=== PATIENT | female | born 1970 ===

== ENCOUNTER 2017-03-03 15:48 | Emergency (ER) | payer BC ==
[2017-03-03 16:08] VITALS: BP 149/84; PULSE 105; RESP 20; TEMP 98.9
--- NOTE | 2017-03-03 16:29 | ED ---
Neck Injury/Pain HPI - General Chief Complaint: Neck Pain/Injury Stated Complaint: Neck pain Time Seen by Provider: 03/03/17 16:13 Mode of arrival: ambulatory Limitations: no limitations - History of Present Illness MD Complaint: neck pain -: days(s) (2) Radiation: head Severity: moderate Severity scale (1-10): 8 Quality: burning, sharp Consistency: constant Treatments Prior to Arrival: other (valium) - Related Data Previous Rx's Medication Instructions Recorded Cyclobenzaprine [Flexeril] 10 mg PO TID #20 tab 03/03/17 methylPREDNISolone [Medrol] 4 mg PO DIRECTED #1 tab.ds.pk 03/03/17 Allergies Allergy/AdvReac Type Severity Reaction Status Date / Time No Known Allergies Allergy Verified 03/03/17 16:04 Review of Systems ROS Statement: Those systems with pertinent positive or pertinent negative responses have been documented in the HPI. ROS Other: All systems not noted in ROS Statement are negative. Constitutional: Denies: fever, chills Eyes: Denies: vision change ENT: Denies: ear pain, throat pain Respiratory: Denies: cough Cardiovascular: Denies: palpitations Endocrine: Denies: fatigue Gastrointestinal: Denies: abdominal pain, nausea, vomiting Skin: Denies: rash Neurological: Reports: headache. Denies: weakness, numbness, paresthesias, confusion, vertigo Past Medical History History of Any Multi-Drug Resistant Organisms: None Reported Past Surgical History: Hysterectomy, Orthopedic Surgery, Tubal Ligation Additional Past Surgical History / Comment(s): angeli knee replaced, nasal surgery Past Psychological History: No Psychological Hx Reported Smoking Status: Current some day smoker Past Alcohol Use History: None Reported Past Drug Use History: Marijuana General Exam Limitations: no limitations General appearance: alert, in no apparent distress Eye exam: Present: normal appearance, PERRL, EOMI. Absent: scleral icterus, conjunctival injection, periorbital swelling ENT exam: Present: normal exam, mucous membranes moist Neck exam: Present: normal inspection, tenderness (Generally tender to bilateral neck especially in the paraspinal area. Slight muscle spasms are noted.). Absent: meningismus, full ROM (Unable tolerate any range of motion more than 5 in any side.), lymphadenopathy Respiratory exam: Present: normal lung sounds bilaterally. Absent: respiratory distress, wheezes, rales, rhonchi, stridor Cardiovascular Exam: Present: regular rate, normal rhythm, normal heart sounds. Absent: systolic murmur, diastolic murmur, rubs, gallop, clicks Extremities exam: Present: normal inspection, full ROM, normal capillary refill. Absent: tenderness, pedal edema, joint swelling, calf tenderness Back exam: Present: normal inspection, muscle spasm (cervical), paraspinal tenderness Neurological exam: Present: alert, oriented X3, CN II-XII intact Psychiatric exam: Present: normal affect, normal mood Skin exam: Present: warm, dry, intact, normal color. Absent: rash Course Vital Signs 03/03/17 16:04 Temperature 98.9 F Pulse Rate 105 H Respiratory 20 Rate Blood Pressure 149/84 O2 Sat by Pulse 99 Oximetry Medical Decision Making - Medical Decision Making Patient was offered injections of Solu-Medrol and Toradol today. Patient declined for her cervical strain and torticollis. Patient would rather just get oral tablets. She states her Valium is out-of-date and she will throw those away. Disposition Clinical Impression: Strain of neck muscle, Torticollis Disposition: HOME SELF-CARE Condition: Good Instructions: Cervical Strain (ED), Spasmodic Torticollis (ED) Prescriptions: Cyclobenzaprine [Flexeril] 10 mg PO TID #20 tab methylPREDNISolone [Medrol] 4 mg PO DIRECTED #1 tab.ds.pk Referrals: None,Stated [Primary Care Provider] - 1-2 days Santiago Carlisle MD [STAFF PHYSICIAN] - 1-2 days Time of Disposition: 16:28
== END 2017-03-03 16:32 | disposition home or self-care (01) ==
LOC: EC 15:48
DX: S16.1XXA Strain of muscle, fascia and tendon at neck level, initial encounter (principal); M43.6 Torticollis; F17.200 Nicotine dependence, unspecified, uncomplicated; Z53.29 Procedure and treatment not carried out because of patient's decision for other reasons
CPT/HCPCS: 99283

== ENCOUNTER → 2017-10-31 | Outpatient (CLI) | payer BC ==
--- NOTE | 2017-11-01 14:02 | MM ---
Reason for exam: screening (asymptomatic). Last mammogram was performed 3 years and 7 months ago. Physical Findings: A clinical breast exam by your physician is recommended on an annual basis and results should be correlated with mammographic findings. MG Screening Mammo w CAD Bilateral CC and MLO view(s) were taken. Prior study comparison: April 02, 2014, bilateral MG screening mammo w CAD. February 26, 2013, bilateral digital screening mammo w/CAD. The breast tissue is heterogeneously dense. This may lower the sensitivity of mammography. There is chronic nodularity bilaterally. There is no discrete abnormality. ASSESSMENT: Negative, BI-RAD 1 RECOMMENDATION: Routine screening mammogram of both breasts in 1 year.
== END | disposition home or self-care (01) ==
LOC: RADMAMWWP 07:09
PROVIDERS: ATTEND Obstetrics & Gynecology
DX: Z12.31 Encounter for screening mammogram for malignant neoplasm of breast (principal)
CPT/HCPCS: 77067

== ENCOUNTER 2018-09-25 10:43 | Day surgery (SDC) | payer BC ==
[2018-09-23 11:14] VITALS: BMI 30.4
[~2018-09-25 10:43] MED LIST: LACTATED RINGERS 1,000 ML IV SCH; LIDOCAINE 1% 20 ML VIAL (10MG/ML) FOR IV START INTRADERMA PRN
[2018-09-25 11:07] VITALS: RESP 16; TEMP 98.6
[2018-09-25] MEDS ORDERED: LIDOCAINE 1% INJ 10MG/ML (20 ML MDV) ONE (11:25)
[2018-09-25] MEDS ORDERED: PROPOFOL 10 MG/ML 20 ML VIAL IV ONE (11:25)
--- NOTE | 2018-09-25 11:32 | P.GSHP ---
History of Present Illness H&P Date: 09/25/18 Chief Complaint: Internal and external hemorrhoids This is a 48-year-old female who presents today for colonoscopy. Patient had issues with roots. She presents today for she'll screening colonoscopy. Past Medical History Additional Past Medical History / Comment(s): hemorrhoids History of Any Multi-Drug Resistant Organisms: None Reported Past Surgical History: Hysterectomy, Orthopedic Surgery, Tubal Ligation Additional Past Surgical History / Comment(s): angeli knee replaced,toe straightened,hemorrhoidectomy Past Anesthesia/Blood Transfusion Reactions: No Reported Reaction Additional Past Anesthesia/Blood Transfusion Reaction / Comment(s): no hx blood transfusion Past Psychological History: No Psychological Hx Reported Smoking Status: Never smoker Past Alcohol Use History: None Reported Past Drug Use History: Marijuana Additional Drug Use History / Comment(s): quit marijauna 20 yrs ago - Past Family History Father Family Medical History: No Reported History Mother Family Medical History: No Reported History Medications and Allergies Home Medications Medication Instructions Recorded Confirmed Type Acetaminophen/Diphenhydramine 1 each PO HS PRN 09/20/18 09/25/18 History [Tylenol PM Extra Strength] Cetirizine HCl [Zyrtec] 10 mg PO DAILY 09/20/18 09/25/18 History Allergies Allergy/AdvReac Type Severity Reaction Status Date / Time Penicillins Allergy Rash/Hives Verified 09/25/18 10:52 airborne supplement Allergy nasal Uncoded 09/25/18 10:52 congestion Surgical - Exam Vital Signs Temp Pulse Resp BP Pulse Ox 98.6 F 92 16 116/73 96 09/25/18 11:03 09/25/18 11:03 09/25/18 11:03 09/25/18 11:03 09/25/18 11:03 - General well developed, well nourished, no distress - Eyes PERRL - ENT normal pinna - Neck no masses - Respiratory normal expansion - Cardiovascular Rhythm: regular - Abdomen Abdomen: soft, non tender Assessment and Plan Assessment: Hemorrhoids We'll perform screening colonoscopy.
--- NOTE | 2018-09-25 11:46 | P.OP ---
Date of Procedure: 09/25/18 Preoperative Diagnosis: Hemorrhoids Screening colonoscopy Postoperative Diagnosis: Internal and external hemorrhoids Mild diverticular changes Procedure(s) Performed: Colonoscopy Anesthesia: MAC Surgeon: Lauro Culp Pathology: none sent Condition: stable Disposition: PACU Description of Procedure: The patient's placed on the endoscopy table in the lateral position. She received IV sedation. Digital rectal exam was performed which revealed internal/external hemorrhoids. The flexible colonoscope was then placed patient anus passed throughout the entire colon. The ileocecal valve was visualized. The cecum, ascending and transverse colon appeared normal. In the descending; was mild diverticular changes. Scope was then brought back the rectum and this appeared normal. Scope was withdrawn through anus and internal and external hemorrhoids were noted. There is evidence of any GI bleed.
[2018-09-25 12:21] VITALS: BP 121/68; PULSE 72
== END 2018-09-25 12:33 | disposition home or self-care (01) ==
LOC: ORWHC2ENDO 10:43
PROVIDERS: ATTEND Surgery
DX: Z12.11 Encounter for screening for malignant neoplasm of colon (principal); K64.4 Residual hemorrhoidal skin tags; K57.30 Diverticulosis of large intestine without perforation or abscess without bleeding; K64.8 Other hemorrhoids; Z88.0 Allergy status to penicillin; Z79.899 Other long term (current) drug therapy
CPT/HCPCS: J2001; J2704; G0121

== ENCOUNTER 2018-10-09 08:12 | Day surgery (SDC) | payer BC ==
[2018-09-23 11:54] VITALS: BMI 30.4
[~2018-10-09 08:12] MED LIST changes: +DEXAMETHASONE SOD PHOSPHATE 10 MG/ML 1 ML VIAL IV ONE; +HEPARIN SODIUM,PORCINE 5,000 UNIT/ML 1 ML VIAL SQ ONE; +HYDROmorphone 0.5 MG/0.5 ML SYRINGE IVP PRN; +NA PHOS,M-B/NA PHOS,DI-BA 133 ML ENEMA RECTAL ONE; +ONDANSETRON 4 MG/2 ML VIAL IVP ONE; +Pre Op ABX Message 1 EACH MISC MISCELLANE ONE
[2018-10-09 08:40] VITALS: TEMP 99.2
[2018-10-09] MEDS ORDERED: MIDAZOLAM (PF) 2 MG/2 ML VIAL IVP ONE (09:42)
--- NOTE | 2018-10-09 10:00 | P.GSHP ---
History of Present Illness H&P Date: 10/09/18 Chief Complaint: Internal and external hemorrhoids This is a 48-year-old female who's had issues with internal Hemorrhoid. Patient had complaints of rectal pain, itching and bleeding. She presents today for hemorrhoidectomy. Past Medical History Additional Past Medical History / Comment(s): hemorrhoids History of Any Multi-Drug Resistant Organisms: None Reported Past Surgical History: Hysterectomy, Orthopedic Surgery, Tubal Ligation Additional Past Surgical History / Comment(s): angeli knee replaced,toe straightened,hemorrhoidectomy Past Anesthesia/Blood Transfusion Reactions: No Reported Reaction Past Psychological History: No Psychological Hx Reported Smoking Status: Never smoker Past Alcohol Use History: None Reported Past Drug Use History: Marijuana Additional Drug Use History / Comment(s): quit marijauna 20 yrs ago - Past Family History Father Family Medical History: No Reported History Mother Family Medical History: No Reported History Medications and Allergies Home Medications Medication Instructions Recorded Confirmed Type Acetaminophen/Diphenhydramine 1 each PO HS PRN 09/20/18 10/09/18 History [Tylenol PM Extra Strength] Cetirizine HCl [Zyrtec] 10 mg PO DAILY 09/20/18 10/09/18 History Acetaminophen Tab [Tylenol Tab] 1,000 mg PO Q6HR 10/09/18 10/09/18 History Allergies Allergy/AdvReac Type Severity Reaction Status Date / Time Penicillins Allergy Rash/Hives Verified 09/25/18 10:52 airborne supplement Allergy nasal Uncoded 09/25/18 10:52 congestion Surgical - Exam Vital Signs Temp Pulse Resp BP Pulse Ox 99.2 F 89 18 123/69 96 10/09/18 08:37 10/09/18 08:37 10/09/18 08:37 10/09/18 08:37 10/09/18 08:37 - General well developed, well nourished, no distress - Eyes PERRL - ENT normal pinna - Neck no masses - Respiratory normal expansion - Cardiovascular Rhythm: regular - Abdomen Abdomen: soft, non tender - Rectum Internal and external hemorrhoids Assessment and Plan Assessment: Internal and external hemorrhoids. We'll perform hemorrhoidectomy.
[2018-10-09] MEDS ORDERED: KETAMINE 10 MG/ML 20 ML VIAL ONE (10:09)
[2018-10-09] MEDS ORDERED: fentaNYL (PF) 50 MCG/ML 2 ML AMP ONE (10:09)
[2018-10-09] MEDS ORDERED: PROPOFOL 10 MG/ML 20 ML VIAL IV ONE (10:09)
[2018-10-09] MEDS ORDERED: MIDAZOLAM 2 MG/2 ML VIAL ONE (10:09)
[2018-10-09] MEDS ORDERED: LIDOCAINE 1% INJ 10MG/ML (20 ML MDV) ONE (10:09)
[2018-10-09] MEDS ORDERED: BUPIVACAIN-EPI 0.25%-1:200,000 30 ML VIAL SQ ONE (10:10)
[2018-10-09] MEDS ORDERED: GELATIN SPONGE,ABSORB (LARGE) 1 EACH SPONGE TOPICAL ONE (10:29)
[2018-10-09 10:44] VITALS: RESP 16
--- NOTE | 2018-10-09 11:04 | P.OP ---
Date of Procedure: 10/09/18 Preoperative Diagnosis: Internal and external hemorrhoids Postoperative Diagnosis: Internal and external hemorrhoids Procedure(s) Performed: Internal and external hemorrhoidectomy Anesthesia: MAC Surgeon: Lauro Culp Estimated Blood Loss (ml): 5 Pathology: other (Internal and external hemorrhoids) Condition: stable Disposition: PACU Description of Procedure: The patient's placed on the operative table in the supine position. She was then placed in the prone position and received IV sedation. Her anus was prepped and draped in sterile fashion. The patient had large hemorrhoidal columns on the left lateral and right anterior position. The anus transverse placed in the anus. And then the left hemorrhoidal column was grasped. Allis clamps. And then using the Harmonic scissors the hemorrhoidectomy is performed. Next the right hemorrhoid column was excised in identical fashion. The wound was inspected for hemostasis. There is no bleeding seen. Gelfoam was placed patient anus. Patient top she will was sent to recovery in stable condition.
[2018-10-09 11:41] VITALS: BP 105/71; PULSE 68
== END 2018-10-09 12:04 | disposition home or self-care (01) ==
LOC: OR 08:12
PROVIDERS: ATTEND Surgery
DX: K64.5 Perianal venous thrombosis (principal); K64.8 Other hemorrhoids; Z88.0 Allergy status to penicillin; Z79.899 Other long term (current) drug therapy; Z90.710 Acquired absence of both cervix and uterus; Z98.51 Tubal ligation status; Z98.890 Other specified postprocedural states; Z96.653 Presence of artificial knee joint, bilateral; Z91.048 Other nonmedicinal substance allergy status
CPT/HCPCS: 88304

== ENCOUNTER → 2020-06-16 | Outpatient (CLI) | payer BC ==
--- NOTE | 2020-06-16 13:34 | MM ---
Reason for exam: screening (asymptomatic). Last mammogram was performed 2 years and 8 months ago. History: Family history of breast cancer in maternal grandmother at age 85. Physical Findings: A clinical breast exam by your physician is recommended on an annual basis and results should be correlated with mammographic findings. MG Screening Mammo w CAD Bilateral CC and MLO view(s) were taken. Prior study comparison: October 31, 2017, bilateral MG screening mammo w CAD. April 02, 2014, bilateral MG screening mammo w CAD. The breast tissue is heterogeneously dense. This may lower the sensitivity of mammography. Finding: There is a 5 mm obscured round mass in the upper outer quadrant, middle position of the right breast. There is a chronic nodularity bilaterally. ASSESSMENT: Incomplete: need additional imaging evaluation, BI-RAD 0 RECOMMENDATION: Special view mammogram and ultrasound of the right breast. [facility] will attempt to contact patient to return for supplemental views and ultrasound.
== END | disposition home or self-care (01) ==
LOC: RADMAMWWP 07:55
PROVIDERS: ATTEND Family Medicine
DX: Z12.31 Encounter for screening mammogram for malignant neoplasm of breast (principal)
CPT/HCPCS: 77067

== ENCOUNTER → 2020-07-14 | Outpatient (CLI) | payer BC ==
--- NOTE | 2020-07-15 08:23 | MM ---
Reason for exam: additional evaluation requested from abnormal screening. Last mammogram was performed 1 month ago. History: Family history of breast cancer in maternal grandmother at age 85. Physical Findings: Nurse did not find any significant physical abnormalities on exam. MG Work Up Mamm w CAD RT Spot compression CC, spot compression MLO, and ML view(s) were taken of the right breast. Prior study comparison: June 16, 2020, bilateral MG screening mammo w CAD. October 31, 2017, bilateral MG screening mammo w CAD. The breast tissue is heterogeneously dense. This may lower the sensitivity of mammography. Finding: There is a 5 mm mass located 8 cm from the nipple in the 10 o'clock position of the right breast. Ultrasound. These results were verbally communicated with the patient and result sheet given to the patient on 07/14/20. ASSESSMENT: Incomplete: need additional imaging evaluation, BI-RAD 0 RECOMMENDATION: Ultrasound of the right breast.
--- NOTE | 2020-07-15 08:25 | USB ---
Reason for exam: additional evaluation requested from abnormal screening. History: Family history of breast cancer in maternal grandmother at age 85. US Breast Workup Limited RT Right limited breast ultrasound including focal area of concern, retroareolar and axilla demonstrates a 0.5 x 0.4 x 0.6cm cystic lesion at 10 o'clock. Complex cyst with debris, no flow through transmission. Probably benign, 6 month right diagnostic mammogram and ultrasound. These results were verbally communicated with the patient and result sheet given to the patient on 07/14/20. ASSESSMENT: Probably benign, BI-RAD 3 RECOMMENDATION: Follow-up diagnostic mammogram and ultrasound of the right breast in 6 months.
== END | disposition home or self-care (01) ==
LOC: RADMAMWWP 14:16
PROVIDERS: ATTEND Family Medicine
DX: N63.10 Unspecified lump in the right breast, unspecified quadrant (principal); N60.01 Solitary cyst of right breast; Z80.3 Family history of malignant neoplasm of breast
CPT/HCPCS: 77065